=== PATIENT | female | born 1945 | race Caucasian/White ===

== ENCOUNTER 2022-07-08 16:25 | Inpatient (IN) | payer OTHER ==
[~2022-07-08] VITALS: Ht 152.4 cm; Wt 60.8 kg
[2022-07-08 16:25] VITALS: BP_SYST 155
--- NOTE | 2022-07-08 16:25 | NUR ---
Patient to ER H1 to gown for evaluation. Side rails up. AWAITING AVAILABLE BED IN ED, RT CALLED
--- NOTE | 2022-07-08 16:26 | NUR ---
PT BIB FAMILY FROM HOME C/O WORSENING SOB X 2 DAYS, O2 ON ARRIVAL NC @ 6LPM 70%. PT STATES SHE FEELS WEAK AND HAS BEEN HAVING N/V. 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 PT IS ALERT AND ORIENTED X 4, CALM AND COOPERATIVE. CARE TO BE PROVIDED ORDERED.
--- NOTE | 2022-07-08 16:27 | NUR ---
RT WITH PT
--- NOTE | 2022-07-08 16:38 | NUR ---
ER Dr. KOO at bedside examining patient.
[2022-07-08] MEDS ORDERED: ALBUTEROL SULFATE 0.083% 2.5 MG/3 ML VIAL.NEB INH ONE ×2 (17:00→19:00)
[2022-07-08] MEDS ORDERED: DEXAMETHASONE SOD PHOSPHATE 10 MG/ML VIAL IVP ONE ×2 (17:00→21:00)
[2022-07-08] MEDS ORDERED: IPRATROPIUM BROM 0.5 MG/2.5 ML VIAL.NEB (ATROVENT) INH ONE (17:00)
--- NOTE | 2022-07-08 17:38 | NUR ---
# 20 gauge angiocath placed to RHAND. Use of asceptic technique. Opsite placed over site. Blood return noted. Blood for lab drawn from site. Flushed with 10 cc of normal saline. No evidence of infiltration noted. Patient tolerated well.
[2022-07-08 17:57] LABS: BASOPHILS # (AUTO) 0.1 K/uL (0.0-0.2); BASOPHILS % (AUTO) 0.4 % (0.0-2.0); HEMATOCRIT 36.5 % (36-48); HEMOGLOBIN 12.1 g/dL (12.0-16.0); LYMPHOCYTES # (AUTO) 0.7 K/uL (1.0-5.5); LYMPHOCYTES % (AUTO) 5.1 % (20.5-51.5); MEAN CORPUSCULAR HEMOGLOBIN 30 pg (27-31); MEAN CORPUSCULAR HGB CONC 33 % (32-36); MEAN CORPUSCULAR VOLUME 89 fL (79.0-98.0); MONOCYTES # (AUTO) 1.2 K/uL (0.0-1.0); MONOCYTES % (AUTO) 8.3 % (1.7-9.3); NEUTROPHILS # (AUTO) 12.4 K/uL (1.8-7.7); NEUTROPHILS % (AUTO) 86.2 % (40.0-70.0); PLATELET COUNT (AUTO) 308 K/uL (130-430); RED BLOOD CELL COUNT(AUTO) 4.11 MIL/uL (4.2-6.2); RED CELL DISTRIBUTION WIDTH 15.8 % (9.0-15.0); WHITE BLOOD COUNT (AUTO) 14.4 K/uL (4.8-10.8)
[2022-07-08 18:00] LABS: ANION GAP 11 (5-15); CALCIUM 8.6 mg/dL (8.4-11.0); CHLORIDE 99 mmol/L (98-107); CREATININE 0.95 mg/dL (0.55-1.30); GLUCOSE 131 mg/dL (70-99); UREA NITROGEN, BLOOD 21 mg/dL (8-21)
[2022-07-08 18:07] LABS: ALANINE AMINOTRANSFERASE 30 U/L (12-78); ALBUMIN 2.7 g/dL (3.4-4.8); ASPARTATE AMINOTRANSFERASE 32 U/L (10-37); TOTAL BILIRUBIN 0.5 mg/dL (0.0-1.0)
[2022-07-08] MEDS ORDERED: MAGNESIUM SULFATE 50 ML IV ONE (19:00)
[2022-07-08] MEDS ORDERED: cefTRIAXone 1 GM IVPB PREMIX 50 ML IV ONE (19:00)
--- NOTE | 2022-07-08 21:16 | NUR ---
Admit bed requested Patient will be admitted to care of . Admitted to ICU unit. Diagnosis COPD EXACERBATION Inpatient (Yes or No) YES Observation (Yes or No) NO Orientation concerns or request close to nursing station (Yes or No) NO Covid Status NEGATIVE On vent or bipap YES Isolation requirements NO Needs a sitter NO From Home (Yes or if No enter name of facility) YES Requires Dialysis (Yes or No) NO Med Rec Completed (Yes of No) PENDING
[2022-07-08] MEDS ORDERED: ACETAMINOPHEN 500 MG TABLET PO ONE (21:45)
--- NOTE | 2022-07-08 22:45 | NUR ---
RT at bedside
--- NOTE | 2022-07-08 22:46 | NUR ---
Patient will be admitted to care of MD Hdez. Admitted to ICU unit. Will go to ICU-8. Complete and up to date summary report printed. SBAR report given at bedside to TOSHA Henriquez with opportunity for questions.
--- NOTE | 2022-07-08 22:46 | NUR ---
Note quyen in EDM - 07/09/22 at 0425 by [id number] Patient will be admitted to care of MD Hdez. Admitted to Tele unit. Will go to room 119B. Complete and up to date summary report printed. SBAR report given at bedside to TOSHA Ordoñez with opportunity for questions.
[2022-07-08 23:00] VITALS: BP_SYST 121
[2022-07-09] VITALS (26 sets, daily range): BP systolic 101–141
--- NOTE | 2022-07-09 04:00 | NUR ---
CONSULTATION PAGED/CALLED Reason for Consultation: RESPIRATORY FAILURE Person Who was Notified: KASEY Consulting Physician: DR. SCHROEDER [employer] Painter Specialty: PULMONOLOGY Ordering Physician: DR. BLANCHARD
[2022-07-09 05:57] LABS: BASOPHILS % (AUTO) 0.2 % (0.0-2.0); HEMATOCRIT 34.8 % (36-48); HEMOGLOBIN 11.8 g/dL (12.0-16.0); LYMPHOCYTES # (AUTO) 0.6 K/uL (1.0-5.5); MEAN CORPUSCULAR HEMOGLOBIN 30 pg (27-31); MEAN CORPUSCULAR HGB CONC 34 % (32-36); MEAN CORPUSCULAR VOLUME 89 fL (79.0-98.0); MONOCYTES # (AUTO) 0.2 K/uL (0.0-1.0); MONOCYTES % (AUTO) 1.8 % (1.7-9.3); NEUTROPHILS # (AUTO) 8.5 K/uL (1.8-7.7); PLATELET COUNT (AUTO) 277 K/uL (130-430); RED BLOOD CELL COUNT(AUTO) 3.92 MIL/uL (4.2-6.2); RED CELL DISTRIBUTION WIDTH 15.9 % (9.0-15.0); WHITE BLOOD COUNT (AUTO) 9.2 K/uL (4.8-10.8)
[2022-07-09 07:23] LABS: ALANINE AMINOTRANSFERASE 23 U/L (12-78); ALBUMIN 2.6 g/dL (3.4-4.8); ANION GAP 8 (5-15); ASPARTATE AMINOTRANSFERASE 20 U/L (10-37); CALCIUM 9.3 mg/dL (8.4-11.0); CHLORIDE 99 mmol/L (98-107); CREATININE 0.97 mg/dL (0.55-1.30); GLUCOSE 231 mg/dL (70-99); TOTAL BILIRUBIN 0.4 mg/dL (0.0-1.0); UREA NITROGEN, BLOOD 25 mg/dL (8-21)
[2022-07-09] MEDS: IPRATROPIUM/ALBUTEROL SULFATE 3 ML AMPUL.NEB (DUONEB) INH SCH ×5 (07:45→23:00)
--- NOTE | 2022-07-09 07:50 | NUR ---
OFF BIPAP AND PLACED ON NC 3.5LPM PER ABG RESULTS.
[2022-07-09] MEDS: DOXYCYCLINE HYCLATE 100 MG CAPSULE PO SCH ×2 (08:51→20:10)
[2022-07-09 08:58] LABS: BILIRUBIN,URINE NEGATIVE (NEGATIVE); BLOOD, URINE 1+ (NEGATIVE); CLARITY/URINE CLEAR (CLEAR); COLOR,URINE YELLOW (YELLOW); GLUCOSE,URINE 2+ (NEGATIVE); KETONES,URINE TRACE (NEGATIVE); LEUKOCYTE ESTERASE ,URINE NEGATIVE (NEGATIVE); NITRITE, URINE NEGATIVE (NEGATIVE); PH,URINE 5.5 (5.0-8.0); PROTEIN URINE 1+ (NEGATIVE); UROBILINOGEN,URINE 0.2 (0.2-1.0)
[2022-07-09] MEDS ORDERED: DEXAMETHASONE SOD PHOSPHATE 10 MG/ML VIAL IVP SCH (09:00)
[2022-07-09] MEDS ORDERED: EST1 PO (10:06)
[2022-07-09] MEDS ORDERED: FLUT1BLS5 IH (10:10)
[2022-07-09] MEDS ORDERED: ALBMDI INH (10:10)
[2022-07-09] MEDS ORDERED: BETA1TAB20 PO (10:10)
[2022-07-09] MEDS ORDERED: ZINC100T2 PO (10:10)
[2022-07-09] MEDS ORDERED: ALPR0.25 PO (10:10)
[2022-07-09 11:04] LABS: BACTERIA,URINE RARE /HPF (None Seen); HYALINE CASTS, URINE 0-10 /LPF (None Seen); WBC,URINE 0-3 /HPF (0-3); YEAST,URINE Rare /HPF (None Seen)
--- NOTE | 2022-07-09 11:59 | NUR ---
RECV'D PT FROM NOC RN. PT AAOX4, NAD NOTED. ABG DONE, RESULTS WNL. PT PLACED ON 4L O2 NC WITH O2 SAT 92-94%, DEPENDENT ON HOW PT'S BREATHING HER O2 SAT CAN DECREASE TO 86-88%. DENIES ANY SOB. BED SCHERER USED, UA SENT. VSS, AFEBRILE. DENIES ANY PAIN. TOLERATED BREAKFAST WELL, DENIES ANY N/V. DAUGHTER AT BS. PT SEEN BY DR. BLACKMAN ROUNDED AND CLEARED THE PT TO BE DOWNGRADED TO TELE. MED REC UPDATED. ALL NEEDS ATTENDED TO. CALL LIGHT IN REACH. WILL CONT TO MONITOR.
[2022-07-09] MEDS ORDERED: ALPRAZolam 0.25 MG TABLET PO PRN (16:00)
[2022-07-09] MEDS ORDERED: IPRATROPIUM/ALBUTEROL SULFATE 3 ML AMPUL.NEB (DUONEB) INH ONE (17:45)
[2022-07-09] MEDS ORDERED: BUDESONIDE 0.5 MG/2 ML AMPUL.NEB INH ONE (17:45)
[2022-07-09] MEDS: METHYLPREDNISOLONE SOD SUCC 40 MG/ML VIAL IVP SCH (20:10)
[2022-07-09 21:08] LABS: BASOPHILS % (AUTO) 0.3 % (0.0-2.0); HEMATOCRIT 33.8 % (36-48); HEMOGLOBIN 11.2 g/dL (12.0-16.0); LYMPHOCYTES # (AUTO) 0.5 K/uL (1.0-5.5); LYMPHOCYTES % (AUTO) 3.3 % (20.5-51.5); MEAN CORPUSCULAR HEMOGLOBIN 29 pg (27-31); MEAN CORPUSCULAR HGB CONC 33 % (32-36); MEAN CORPUSCULAR VOLUME 89 fL (79.0-98.0); MONOCYTES # (AUTO) 0.5 K/uL (0.0-1.0); MONOCYTES % (AUTO) 3.3 % (1.7-9.3); NEUTROPHILS % (AUTO) 93.1 % (40.0-70.0); PLATELET COUNT (AUTO) 303 K/uL (130-430); RED BLOOD CELL COUNT(AUTO) 3.82 MIL/uL (4.2-6.2); RED CELL DISTRIBUTION WIDTH 15.8 % (9.0-15.0); WHITE BLOOD COUNT (AUTO) 16.1 K/uL (4.8-10.8)
[2022-07-10] VITALS (10 sets, daily range): BP systolic 118–146
[2022-07-10] MEDS: IPRATROPIUM/ALBUTEROL SULFATE 3 ML AMPUL.NEB (DUONEB) INH SCH ×2 (03:00→07:20)
[2022-07-10] MEDS ORDERED: BUDESONIDE 0.5 MG/2 ML AMPUL.NEB INH SCH (07:00)
[2022-07-10 07:26] LABS: ANION GAP 8 (5-15); CALCIUM 8.9 mg/dL (8.4-11.0); CHLORIDE 100 mmol/L (98-107); GLUCOSE 177 mg/dL (70-99); UREA NITROGEN, BLOOD 27 mg/dL (8-21)
[2022-07-10] MEDS: DOXYCYCLINE HYCLATE 100 MG CAPSULE PO SCH (08:57)
[2022-07-10] MEDS: METHYLPREDNISOLONE SOD SUCC 40 MG/ML VIAL IVP SCH ×2 (08:57→09:26)
[2022-07-10] MEDS: ENOXAPARIN SODIUM 30 MG/0.3 ML SYRINGE SUBCUT SCH ×3 (08:58→10:16)
[2022-07-10] MEDS ORDERED: DOXY100T2 PO (09:20)
--- NOTE | 2022-07-10 09:21 | NUR ---
PT ORDER FOR DISCHARGE TO HOME, PT HAS HOME 02 AND USES 3.5L NC AT HOME, PT STABLE ON 3.5L HERE, VS STABLE, PT STILL HAS HOME OXYGEN, MD BLACKMAN WILL WRITE PRESCRIPTION AND ORDER FOR DC PLACED, PAGED DR MADERA PER DR BLACKMAN REQUEST, BUT NO CALL BACK FROM DR MADERA YET FROM 0800 PAGE/PT HAS TRANSPORTATION WITH DAUGHTER AT BEDSIDE//MW
[2022-07-10] MEDS ORDERED: PRED20TA PO (09:23)
--- NOTE | 2022-07-10 10:55 | NUR ---
DISCHARGE INSTRUCTIONS GIVEN TO PT AND SIGNED. PT VERBALIZES UNDERSTANDING. PRESCRIPTIONS SENT TO PT PHARMACY, REVIEWED BY PT. IV HL REMOVED. TELEMETRY UNIT DC'D. PT DC'D PER W/C WITH DAUGHTER TO HOME ON O2 AT 3.5L.
== END 2022-07-10 11:00 | disposition home or self-care (01) | DRG 189 ==
LOC: SED 16:25 → SIC 21:06
PROVIDERS: ADMIT Internal Medicine; ATTEND Internal Medicine
PROC: 5A09357 Assistance with Respiratory Ventilation, Less than 24 Consecutive Hours, Continuous Positive Airway Pressure (ICD-10-PCS; principal; 2022-07-08)
DX: J96.21 Acute and chronic respiratory failure with hypoxia (principal); J44.1 Chronic obstructive pulmonary disease with (acute) exacerbation; M32.9 Systemic lupus erythematosus, unspecified; Z20.822 Contact with and (suspected) exposure to COVID-19; Z88.0 Allergy status to penicillin; Z88.2 Allergy status to sulfonamides; Z88.5 Allergy status to narcotic agent; Z88.8 Allergy status to other drugs, medicaments and biological substances
CPT/HCPCS: 36415; 36600; 71045; 80048; 80053; 81000; 82803-TC; 83880; 84484; 85025; 87081; 93005; 94640; 94660; 94760; 96365; 96368; 96375; 99291; J0696; J1030; J1100; J1650; J3475; J7613; J7626

== ENCOUNTER 2024-04-02 11:43 | Inpatient (IN) | payer OTHER ==
[~2024-04-02] VITALS: Ht 152.4 cm; Wt 67.1 kg
[2024-04-02] VITALS (7 sets, daily range): BP systolic 109–182; PULSE 85–91; RESP 20–24; TEMP 97.6–98.4; O2SAT 89–93
[~2024-04-02 11:43] MED LIST: ALBMDI INH; ALPR0.25 PO; BETA1TAB20 PO; DOXY100T2 PO; EST1 PO; FLUT1BLS5 IH; PRED20TA PO; ZINC100T2 PO
[2024-04-02] MEDS: IPRATROPIUM/ALBUTEROL SULFATE 3 ML AMPUL.NEB (DUONEB) INH ONE (12:18)
[2024-04-02 12:26] LABS: BASOPHILS # (AUTO) 0.1 K/uL (0.0-0.2); BASOPHILS % (AUTO) 0.5 % (0.0-2.0); EOSINOPHILS # (AUTO) 0.2 K/uL (0.0-0.4); HEMATOCRIT 46.2 % (36-48); LYMPHOCYTES # (AUTO) 1.7 K/uL (1.0-5.5); LYMPHOCYTES % (AUTO) 11.4 % (20.5-51.5); MEAN CORPUSCULAR HEMOGLOBIN 30 pg (27-31); MEAN CORPUSCULAR HGB CONC 32 % (32-36); MEAN CORPUSCULAR VOLUME 92 fL (79.0-98.0); MONOCYTES % (AUTO) 6.5 % (1.7-9.3); NEUTROPHILS # (AUTO) 12.2 K/uL (1.8-7.7); NEUTROPHILS % (AUTO) 80.6 % (40.0-70.0); PLATELET COUNT (AUTO) 266 K/uL (130-430); RED BLOOD CELL COUNT(AUTO) 5.03 MIL/uL (4.2-6.2); RED CELL DISTRIBUTION WIDTH 16.9 % (9.0-15.0); WHITE BLOOD COUNT (AUTO) 15.1 K/uL (4.8-10.8)
[2024-04-02 12:28] LABS: BILIRUBIN,URINE NEGATIVE (NEGATIVE); BLOOD, URINE 2+ (NEGATIVE); CLARITY/URINE CLEAR (CLEAR); COLOR,URINE YELLOW (YELLOW); GLUCOSE,URINE NEGATIVE (NEGATIVE); KETONES,URINE 1+ (NEGATIVE); LEUKOCYTE ESTERASE ,URINE NEGATIVE (NEGATIVE); NITRITE, URINE POSITIVE (NEGATIVE); PROTEIN URINE 2+ (NEGATIVE); UROBILINOGEN,URINE 0.2 (0.2-1.0)
[2024-04-02] MEDS: NITROGLYCERIN 1 INCH (GM) OINT. TP ONE (12:36)
[2024-04-02 12:40] LABS: INR 1.2 (0.8-1.2); PROTHROMBIN TIME 11.9 SECS (9.5-12.5)
[2024-04-02 12:44] LABS: BACTERIA,URINE MODERATE /HPF (None Seen); WBC,URINE 0-3 /HPF (0-3)
[2024-04-02 12:48] LABS: ANION GAP 12 (5-15); CALCIUM 9.1 mg/dL (8.4-11.0); CARBON DIOXIDE 26 mmol/L (23-29); CHLORIDE 103 mmol/L (98-107); CREATININE 0.85 mg/dL (0.55-1.30); GLUCOSE 123 mg/dL (74-106); POTASSIUM 3.7 mmol/L (3.5-5.1); SODIUM SERUM 141 mmol/L (136-145); UREA NITROGEN, BLOOD 24 mg/dL (8-21)
[2024-04-02] MEDS: FUROSEMIDE 40 MG/4 ML VIAL IVP ONE (13:55)
[2024-04-02] MEDS ORDERED: HYDROcodone/ACETAMIN 5-325 MG TAB (NORCO/ VICODIN) PO PRN (14:00)
[2024-04-02] MEDS ORDERED: ALBUTEROL SULFATE 0.083% 2.5 MG/3 ML VIAL.NEB INH PRN (14:00)
[2024-04-02] MEDS ORDERED: ACETAMINOPHEN 325 MG TABLET PO PRN (14:00)
[2024-04-02] MEDS ORDERED: ALBU90AE INH (14:22)
[2024-04-02] MEDS: cefTRIAXone 1 GM IVPB PREMIX 50 ML IV ONE (15:09)
[2024-04-02] MEDS ORDERED: AZITHROMYCIN 500 MG/VIAL (ZITHROMAX) IV ONE (15:37)
[2024-04-02] MEDS: AZITHROMYCIN 500 MG in NS 250 ML IV SCH (15:46)
[2024-04-02] MEDS: methylPREDNISolone SOD SUCC/PF 62.5 MG/ML VIAL IVP ONE (16:16)
[2024-04-02] MEDS: ONDANSETRON HCL 4 MG/2 ML VIAL IVP PRN (16:43)
[2024-04-02] MEDS: ALBUTEROL SULFATE 0.083% 2.5 MG/3 ML VIAL.NEB INH SCH (20:20)
[2024-04-02] MEDS: FUROSEMIDE 40 MG/4 ML VIAL IVP SCH (21:00)
[2024-04-03] VITALS (10 sets, daily range): BP systolic 101–138; PULSE 89–97; RESP 16–19; TEMP 97–97.8; O2SAT 89–98
[2024-04-03 04:59] LABS: HEMATOCRIT 42.2 % (36-48); HEMOGLOBIN 13.7 g/dL (12.0-16.0); LYMPHOCYTES # (AUTO) 0.4 K/uL (1.0-5.5); LYMPHOCYTES % (AUTO) 3.6 % (20.5-51.5); MEAN CORPUSCULAR HEMOGLOBIN 30 pg (27-31); MEAN CORPUSCULAR HGB CONC 33 % (32-36); MEAN CORPUSCULAR VOLUME 92 fL (79.0-98.0); MONOCYTES # (AUTO) 0.1 K/uL (0.0-1.0); MONOCYTES % (AUTO) 0.8 % (1.7-9.3); NEUTROPHILS # (AUTO) 9.3 K/uL (1.8-7.7); NEUTROPHILS % (AUTO) 95.6 % (40.0-70.0); PLATELET COUNT (AUTO) 239 K/uL (130-430); RED BLOOD CELL COUNT(AUTO) 4.59 MIL/uL (4.2-6.2); RED CELL DISTRIBUTION WIDTH 16.4 % (9.0-15.0); WHITE BLOOD COUNT (AUTO) 9.8 K/uL (4.8-10.8)
[2024-04-03 05:25] LABS: ALANINE AMINOTRANSFERASE 42 U/L (12-78); ALBUMIN 3.4 g/dL (3.4-4.8); ANION GAP 10 (5-15); ASPARTATE AMINOTRANSFERASE 19 U/L (10-37); CALCIUM 8.3 mg/dL (8.4-11.0); CARBON DIOXIDE 28 mmol/L (23-29); CHLORIDE 102 mmol/L (98-107); CREATININE 1.12 mg/dL (0.55-1.30); GLUCOSE 171 mg/dL (74-106); SODIUM SERUM 140 mmol/L (136-145); TOTAL BILIRUBIN 0.5 mg/dL (0.0-1.0); TOTAL PROTEIN, SERUM 6.5 g/dL (6.4-8.3); UREA NITROGEN, BLOOD 31 mg/dL (8-21)
[2024-04-03] MEDS: FUROSEMIDE 40 MG/4 ML VIAL IVP ONE (10:15)
[2024-04-03] MEDS: cefTRIAXone 1 GM in D5W 50 ML IV SCH (10:15)
[2024-04-03] MEDS: SILDENAFIL CITRATE 20 MG TABLET PO ONE (15:53)
[2024-04-03] MEDS ORDERED: HYDROCORTISONE 1%, 28.35 GM TOPICAL CREAM TP PRN (17:00)
[2024-04-03] MEDS ORDERED: FUROSEMIDE 40 MG/4 ML VIAL IVP SCH (17:00)
[2024-04-03] MEDS: ESTRADIOL 1 MG TABLET (ESTRACE) PO ONE ×2 (17:03→20:32)
[2024-04-03] MEDS: FUROSEMIDE 40 MG TABLET PO SCH (17:29)
[2024-04-03] MEDS: SILDENAFIL CITRATE 20 MG TABLET PO SCH (20:24)
[2024-04-03] MEDS: ALPRAZolam 0.25 MG TABLET PO ONE (20:27)
[2024-04-04] VITALS (11 sets, daily range): BP systolic 108–126; PULSE 64–91; RESP 18–20; TEMP 96.8–98; O2SAT 89–98
[2024-04-04] MEDS: HYDROcodone/ACETAMIN 10-325 MG TAB PO PRN (04:15)
[2024-04-04] MEDS ORDERED: ALPRAZolam 0.25 MG TABLET PO SCH (09:00)
[2024-04-04] MEDS: ESTRADIOL 1 MG TABLET (ESTRACE) PO SCH (09:06)
[2024-04-04] MEDS: PANTOPRAZOLE SODIUM 40 MG TAB PO ONE (14:15)
[2024-04-04 15:30] LABS: BASOPHILS # (AUTO) 0.1 K/uL (0.0-0.2); BASOPHILS % (AUTO) 0.6 % (0.0-2.0); EOSINOPHILS # (AUTO) 0.3 K/uL (0.0-0.4); EOSINOPHILS % (AUTO) 1.5 % (0.0-4.0); HEMATOCRIT 44.2 % (36-48); HEMOGLOBIN 14.6 g/dL (12.0-16.0); LYMPHOCYTES # (AUTO) 1.6 K/uL (1.0-5.5); LYMPHOCYTES % (AUTO) 9.2 % (20.5-51.5); MEAN CORPUSCULAR HEMOGLOBIN 30 pg (27-31); MEAN CORPUSCULAR HGB CONC 33 % (32-36); MEAN CORPUSCULAR VOLUME 91 fL (79.0-98.0); MONOCYTES # (AUTO) 1.2 K/uL (0.0-1.0); NEUTROPHILS # (AUTO) 14.4 K/uL (1.8-7.7); NEUTROPHILS % (AUTO) 81.7 % (40.0-70.0); PLATELET COUNT (AUTO) 262 K/uL (130-430); RED BLOOD CELL COUNT(AUTO) 4.85 MIL/uL (4.2-6.2); RED CELL DISTRIBUTION WIDTH 17.3 % (9.0-15.0)
[2024-04-04 15:31] LABS: WHITE BLOOD COUNT (AUTO) 17.7 K/uL (4.8-10.8)
[2024-04-04] MEDS: SIMETHICONE 80 MG TAB.CHEW PO ONE (15:49)
[2024-04-04 15:50] LABS: ALANINE AMINOTRANSFERASE 51 U/L (12-78); ALBUMIN 3.8 g/dL (3.4-4.8); ANION GAP 8 (5-15); ASPARTATE AMINOTRANSFERASE 29 U/L (10-37); CALCIUM 8.7 mg/dL (8.4-11.0); CARBON DIOXIDE 33 mmol/L (23-29); CHLORIDE 101 mmol/L (98-107); CREATININE 1.16 mg/dL (0.55-1.30); GLUCOSE 92 mg/dL (74-106); POTASSIUM 4.3 mmol/L (3.5-5.1); SODIUM SERUM 142 mmol/L (136-145); TOTAL BILIRUBIN 0.3 mg/dL (0.0-1.0); TOTAL PROTEIN, SERUM 7.1 g/dL (6.4-8.3); UREA NITROGEN, BLOOD 41 mg/dL (8-21)
[2024-04-04] MEDS: SIMETHICONE 80 MG TAB.CHEW PO SCH (20:51)
[2024-04-04] MEDS: ALPRAZolam 0.25 MG TABLET PO SCH (20:52)
[2024-04-05] VITALS (7 sets, daily range): BP systolic 114–121; PULSE 76–78; RESP 16–18; TEMP 96.2–96.8; O2SAT 89–96
[2024-04-05 05:05] LABS: BASOPHILS % (AUTO) 0.3 % (0.0-2.0); EOSINOPHILS # (AUTO) 0.3 K/uL (0.0-0.4); EOSINOPHILS % (AUTO) 2.6 % (0.0-4.0); HEMATOCRIT 42.1 % (36-48); HEMOGLOBIN 13.8 g/dL (12.0-16.0); LYMPHOCYTES # (AUTO) 2.1 K/uL (1.0-5.5); LYMPHOCYTES % (AUTO) 15.9 % (20.5-51.5); MEAN CORPUSCULAR HEMOGLOBIN 30 pg (27-31); MEAN CORPUSCULAR HGB CONC 33 % (32-36); MEAN CORPUSCULAR VOLUME 92 fL (79.0-98.0); MONOCYTES # (AUTO) 1.3 K/uL (0.0-1.0); MONOCYTES % (AUTO) 9.3 % (1.7-9.3); NEUTROPHILS # (AUTO) 9.6 K/uL (1.8-7.7); NEUTROPHILS % (AUTO) 71.9 % (40.0-70.0); PLATELET COUNT (AUTO) 239 K/uL (130-430); RED BLOOD CELL COUNT(AUTO) 4.58 MIL/uL (4.2-6.2); RED CELL DISTRIBUTION WIDTH 16.9 % (9.0-15.0); WHITE BLOOD COUNT (AUTO) 13.4 K/uL (4.8-10.8)
[2024-04-05 05:37] LABS: ALANINE AMINOTRANSFERASE 47 U/L (12-78); ALBUMIN 3.5 g/dL (3.4-4.8); ANION GAP 5 (5-15); ASPARTATE AMINOTRANSFERASE 24 U/L (10-37); CALCIUM 8.9 mg/dL (8.4-11.0); CARBON DIOXIDE 36 mmol/L (23-29); CHLORIDE 102 mmol/L (98-107); CREATININE 1.04 mg/dL (0.55-1.30); GLUCOSE 94 mg/dL (74-106); POTASSIUM 4.2 mmol/L (3.5-5.1); SODIUM SERUM 143 mmol/L (136-145); TOTAL BILIRUBIN 0.4 mg/dL (0.0-1.0); TOTAL PROTEIN, SERUM 6.5 g/dL (6.4-8.3); UREA NITROGEN, BLOOD 40 mg/dL (8-21)
[2024-04-05] MEDS: PANTOPRAZOLE SODIUM 40 MG TAB PO SCH (09:29)
[2024-04-05] MEDS ORDERED: FURO-149 PO (14:10)
[2024-04-05] MEDS ORDERED: SILD20TA PO (14:10)
== END 2024-04-05 14:50 | disposition home health service (06) | DRG 291 ==
LOC: SED 11:43 → STU 13:49 → SMU 04-04 16:03
PROVIDERS: ADMIT Family Medicine; ATTEND Family Medicine
DX: I50.813 Acute on chronic right heart failure (principal); J96.21 Acute and chronic respiratory failure with hypoxia; N39.0 Urinary tract infection, site not specified; J44.9 Chronic obstructive pulmonary disease, unspecified; D72.829 Elevated white blood cell count, unspecified; I27.20 Pulmonary hypertension, unspecified; I27.81 Cor pulmonale (chronic); Z88.8 Allergy status to other drugs, medicaments and biological substances; Z88.2 Allergy status to sulfonamides; Z88.0 Allergy status to penicillin; Z88.5 Allergy status to narcotic agent; Z79.899 Other long term (current) drug therapy; Z90.710 Acquired absence of both cervix and uterus; Z90.11 Acquired absence of right breast and nipple; Z90.12 Acquired absence of left breast and nipple; Z85.3 Personal history of malignant neoplasm of breast
CPT/HCPCS: 36415; 71045; 80048; 80053; 81000; 81001; 81015; 83605; 83880; 84484; 85025; 85610; 85730; 87040; 87086; 93005; 93306; 94070; 94640; 94664; 94760; 96365; 97116-GP; 97530-GP; 99291; G0378; J0456; J0696; J1940; J2405; J2930; J7050; J7060